=== PATIENT | male | born 1960 | race American Indian/Alaskan Native ===

== ENCOUNTER 2020-02-20 22:38 | Emergency (ER) | payer OTHER ==
[~2020-02-20] VITALS: Ht 91.4 cm; Wt 95.3 kg
[2020-02-21] MEDS ORDERED: CIPRO500 MG PO (01:44)
== END 2020-02-21 02:02 | disposition home or self-care (01) ==
LOC: ED 22:38
DX: N41.9 Inflammatory disease of prostate, unspecified (principal); E87.6 Hypokalemia; E86.0 Dehydration; F17.200 Nicotine dependence, unspecified, uncomplicated
CPT/HCPCS: 71045; 74177; 80053; 81001; 83605; 85025; 96360; 96361; 99284-25; A9270; J7030; Q9967